=== PATIENT | female | born 1970 | race African-American/Black ===

== ENCOUNTER 2021-12-17 06:27 | Observation (INO) ==
[2021-12-17] MEDS ORDERED: ALBUTEROL/IPRATROPIUM 3 ML NEB RESP TX STA (07:32)
[2021-12-17] MEDS ORDERED: methylPREDNISolone SOD SUC 125 MG/2 ML VIAL IV STA (07:32)
[2021-12-17 07:38] LABS: Basophils # 0.1 10*3/uL (0.0-0.2); Basophils % 1.4 % (0.0-0.8); Eosinophils % 19.7 % (0.00-10.9); Hematocrit 48.4 VOL% (35.7-47.0); Hemoglobin 15.8 GM/DL (12.0-16.0); Immature Granulocytes % 0.3 %; Immature Granulocytes Absolute 0.03 #; Lymphocytes # 2.2 10*3/uL (1.4-4.0); Lymphocytes % 21.1 % (21.3-54.2); Mean Corpuscular HGB Conc 32.6 GM/DL (32-36); Mean Corpuscular Volume 82.6 FL (87-102); Mean Platelet Volume 11.1 FL (9.6-12.0); Monocytes % 9.5 % (1.7-12.7); Platelet Count 247 T/CUMM (130-400); Red Blood Count 5.86 MC/CUMM (3.8-5.5); Red Cell Distribution Width 13.9 % (9.3-17.3); White Blood Count 10.3 T/CUMM (4-12)
[2021-12-17 07:45] LABS: PT Patient Result 11.6 SECS (10.5-12.0)
[2021-12-17 07:55] LABS: Albumin 3.9 G/DL (3.4-5.0); Bilirubin,Total 0.7 MG/DL (0.20-1.00); Calcium 9.1 MG/DL (8.5-10.1); Eosinophils 23 % (0-10); Lymphocytes 28 % (20-55); Platelet Estimate Adequate; Potassium 5.3 MMOL/L (3.5-5.1); Segmented Neutrophils 45 % (50-85); Total Cells Counted 100; Total Protein 8.6 G/DL (6.4-8.2)
[2021-12-17] MEDS ORDERED: LEVOFLOXACIN INJ 500 MG/100 ML PREMIX IV ONE (08:13)
[2021-12-17] MEDS ORDERED: GLUCAGON 1 MG VIAL IM PRN (09:22)
[2021-12-17] MEDS ORDERED: ACETAMINOPHEN 325 MG TABLET PO PRN (09:23)
[2021-12-17] MEDS ORDERED: hydrALAZINE 20 MG/1 ML VIAL IV PRN (09:23)
[2021-12-17] MEDS ORDERED: ONDANSETRON 4 MG/2 ML VIAL IV PRN (09:23)
[2021-12-17] MEDS: SODIUM CHLORIDE 0.9% 1,000 ML IV SCH (10:20)
[2021-12-17] MEDS: amLODIPine 10 MG TABLET PO SCH (10:20)
[2021-12-17] MEDS: ENOXAPARIN 40 MG/0.4 ML SYRINGE SUBCUT SCH (10:25)
[2021-12-17] MEDS ORDERED: DEXTROSE 10% 250 ML BAG IV PRN (11:05)
[2021-12-17] MEDS: ALBUTEROL/IPRATROPIUM 3 ML NEB RESP TX SCH ×2 (13:48→19:10)
[2021-12-17] MEDS: methylPREDNISolone SOD SUC 40 MG/1 ML VIAL IV SCH (18:08)
[2021-12-17] MEDS: PREGABALIN 75 MG CAPSULE PO SCH (20:58)
[2021-12-17] MEDS: ZALEPLON 5 MG CAPSULE PO PRN (21:02)
[2021-12-17] MEDS: guaiFENesin/DM ER 600-30 MG TABLET PO PRN (23:19)
[2021-12-18] MEDS: ALBUTEROL/IPRATROPIUM 3 ML NEB RESP TX SCH ×4 (00:50→19:09)
[2021-12-18] MEDS: methylPREDNISolone SOD SUC 40 MG/1 ML VIAL IV SCH ×3 (02:58→21:59)
[2021-12-18] MEDS: SODIUM CHLORIDE 0.9% 1,000 ML IV SCH ×2 (03:07→05:00)
[2021-12-18 05:26] LABS: Basophils % 0.3 % (0.0-0.8); Eosinophils % 0.1 % (0.00-10.9); Hematocrit 42.9 VOL% (35.7-47.0); Hemoglobin 13.8 GM/DL (12.0-16.0); Immature Granulocytes % 0.6 %; Immature Granulocytes Absolute 0.06 #; Lymphocytes % 9.6 % (21.3-54.2); Mean Corpuscular HGB Conc 32.2 GM/DL (32-36); Mean Corpuscular Volume 84.1 FL (87-102); Mean Platelet Volume 11.6 FL (9.6-12.0); Monocytes % 6.6 % (1.7-12.7); Neutrophils % 82.8 % (38.7-73.9); Platelet Count 248 T/CUMM (130-400); Red Cell Distribution Width 13.9 % (9.3-17.3); White Blood Count 9.9 T/CUMM (4-12)
[2021-12-18 05:55] LABS: Calcium 9.2 MG/DL (8.5-10.1); Osmolality,Calculated 268.2 MOS/KG (273-304); Potassium 4.3 MMOL/L (3.5-5.1)
[2021-12-18] MEDS: tiZANidine 4 MG TABLET PO PRN ×3 (06:56→22:05)
[2021-12-18] MEDS: PREGABALIN 75 MG CAPSULE PO SCH ×2 (09:14→22:02)
[2021-12-18] MEDS: amLODIPine 10 MG TABLET PO SCH (09:14)
[2021-12-18] MEDS: LEVOFLOXACIN 750 MG TABLET PO SCH (09:14)
[2021-12-18] MEDS: ENOXAPARIN 40 MG/0.4 ML SYRINGE SUBCUT SCH (11:11)
[2021-12-18] MEDS: guaiFENesin/DM ER 600-30 MG TABLET PO PRN (22:02)
[2021-12-18] MEDS: ZALEPLON 5 MG CAPSULE PO PRN (22:02)
[2021-12-19] MEDS: ALBUTEROL/IPRATROPIUM 3 ML NEB RESP TX SCH ×2 (01:19→07:20)
[2021-12-19] MEDS: tiZANidine 4 MG TABLET PO PRN ×2 (04:19→09:31)
[2021-12-19 05:21] LABS: Basophils % 0.2 % (0.0-0.8); Eosinophils % 0.1 % (0.00-10.9); Hematocrit 40.6 VOL% (35.7-47.0); Hemoglobin 13.2 GM/DL (12.0-16.0); Immature Granulocytes % 0.4 %; Immature Granulocytes Absolute 0.04 #; Lymphocytes # 0.9 10*3/uL (1.4-4.0); Mean Corpuscular HGB Conc 32.5 GM/DL (32-36); Mean Corpuscular Volume 82.2 FL (87-102); Mean Platelet Volume 11.2 FL (9.6-12.0); Monocytes % 5.3 % (1.7-12.7); Platelet Count 224 T/CUMM (130-400); Red Blood Count 4.94 MC/CUMM (3.8-5.5); Red Cell Distribution Width 14.1 % (9.3-17.3); White Blood Count 10.7 T/CUMM (4-12)
[2021-12-19 05:50] LABS: Osmolality,Calculated 272.1 MOS/KG (273-304); Potassium 3.6 MMOL/L (3.5-5.1)
[2021-12-19 08:00] VITALS: BP 107/54
[2021-12-19] MEDS ORDERED: amLODIPine 5 MG TABLET PO SCH (09:00)
[2021-12-19] MEDS: LEVOFLOXACIN 750 MG TABLET PO SCH (09:28)
[2021-12-19] MEDS: PREGABALIN 75 MG CAPSULE PO SCH (09:28)
[2021-12-19] MEDS: methylPREDNISolone SOD SUC 40 MG/1 ML VIAL IV SCH (09:29)
== END 2021-12-19 11:17 | disposition home or self-care (01) ==
LOC: EDBD → EDUNIT# → N.EDINP 06:27 → N.ED 06:27 → N.5E 15:53
PROVIDERS: ADMIT Internal Medicine; ATTEND Internal Medicine

== ENCOUNTER 2022-03-21 03:18 | Inpatient (IN) ==
[2022-03-21 04:02] LABS: Basophils # 0.1 10*3/uL (0.0-0.2); Basophils % 1.5 % (0.0-0.8); Eosinophils # 1.7 10*3/uL (0.0-0.87); Eosinophils % 20.8 % (0.00-10.9); Hematocrit 44.4 VOL% (35.7-47.0); Hemoglobin 14.6 GM/DL (12.0-16.0); Immature Granulocytes % 0.1 %; Immature Granulocytes Absolute 0.01 #; Lymphocytes # 0.9 10*3/uL (1.4-4.0); Lymphocytes % 10.8 % (21.3-54.2); Mean Corpuscular HGB Conc 32.9 GM/DL (32-36); Mean Corpuscular Volume 83.6 FL (87-102); Mean Platelet Volume 10.6 FL (9.6-12.0); Monocytes # 0.8 10*3/uL (0.11-0.8); Monocytes % 9.9 % (1.7-12.7); Neutrophils % 56.9 % (38.7-73.9); Platelet Count 207 T/CUMM (130-400); Red Blood Count 5.31 MC/CUMM (3.8-5.5); Red Cell Distribution Width 13.9 % (9.3-17.3); White Blood Count 8.3 T/CUMM (4-12)
[2022-03-21] MEDS ORDERED: methylPREDNISolone SOD SUC 125 MG/2 ML VIAL IV STA (04:05)
[2022-03-21] MEDS ORDERED: ALBUTEROL/IPRATROPIUM 3 ML NEB RESP TX STA (04:05)
[2022-03-21 04:12] LABS: ABG Base Excess 4.4 MMOL/L (-2.5-2.5); ABG HCO3 28.4 MMOL/L (20-26); ABG Oxygen Saturation 98.4 % (95-100); ABG PH 7.269 (7.35-7.45); ABG TCO2 30.6 MMOL/L (23-27)
[2022-03-21 04:13] LABS: ABG PCO2 76.9 MM HG (35-48)
[2022-03-21] MEDS ORDERED: LEVOFLOXACIN INJ 750 MG/150 ML PREMIX IV STA (04:21)
[2022-03-21 04:23] LABS: Albumin 3.5 G/DL (3.4-5.0); Bilirubin,Total 0.4 MG/DL (0.20-1.00); Calcium 8.9 MG/DL (8.5-10.1); Potassium 3.2 MMOL/L (3.5-5.1); Total Protein 8.1 G/DL (6.4-8.2)
[2022-03-21] MEDS ORDERED: ACETAMINOPHEN 500 MG TABLET PO STA (04:38)
[2022-03-21 04:55] LABS: Eosinophils 30 % (0-10); Lymphocytes 13 % (20-55); Total Cells Counted 100
[2022-03-21 04:56] LABS: Microcytosis Slight; Ovalocytes Slight; Platelet Estimate Normal
[2022-03-21] MEDS ORDERED: DEXTROSE 10% 250 ML BAG IV PRN (05:00)
[2022-03-21] MEDS ORDERED: MORPHINE 2 MG/1 ML SYRINGE IV PRN (05:00)
[2022-03-21] MEDS ORDERED: ACETAMINOPHEN 325 MG TABLET PO PRN (05:00)
[2022-03-21] MEDS ORDERED: hydrALAZINE 20 MG/1 ML VIAL IV PRN (05:00)
[2022-03-21] MEDS ORDERED: GLUCAGON 1 MG VIAL IM PRN (05:00)
[2022-03-21] MEDS ORDERED: ONDANSETRON 4 MG/2 ML VIAL IV PRN (05:00)
[2022-03-21] MEDS ORDERED: POTASSIUM CHLORIDE 20 MEQ TABLET PO ONE (05:06)
[2022-03-21] MEDS: ALBUTEROL/IPRATROPIUM 3 ML NEB RESP TX SCH ×3 (07:15→20:07)
[2022-03-21] MEDS: PANTOPRAZOLE 40 MG TABLET PO SCH (09:39)
[2022-03-21 12:19] LABS: Arterial Base Excess iSTAT 6 MMOL/L (-2.5-2.5); Arterial Bicarbonate iSTAT 33.5 MMOL/L (20-26); Arterial O2 Saturation iSTAT 96 % (95-100); Arterial PCO2 iSTAT 57 MM HG (35-48); Arterial PO2 iSTAT 84 MM HG (80-95); Arterial Total CO2 iSTAT 35 MMO/L (23-27); Arterial pH iSTAT 7.374 (7.35-7.45)
[2022-03-21] MEDS: methylPREDNISolone SOD SUC 125 MG/2 ML VIAL IV SCH ×2 (12:40→21:50)
[2022-03-21] MEDS: ENOXAPARIN 40 MG/0.4 ML SYRINGE SUBCUT SCH (21:53)
[2022-03-22] MEDS: ALBUTEROL/IPRATROPIUM 3 ML NEB RESP TX SCH ×4 (00:12→19:30)
[2022-03-22] MEDS: methylPREDNISolone SOD SUC 125 MG/2 ML VIAL IV SCH ×3 (05:00→21:15)
[2022-03-22] MEDS: LEVOFLOXACIN INJ 750 MG/150 ML PREMIX IV SCH (05:11)
[2022-03-22 06:52] LABS: Basophils % 0.1 % (0.0-0.8); Eosinophils % 0.1 % (0.00-10.9); Hematocrit 40.8 VOL% (35.7-47.0); Hemoglobin 13.5 GM/DL (12.0-16.0); Immature Granulocytes % 0.3 %; Immature Granulocytes Absolute 0.02 #; Lymphocytes # 0.9 10*3/uL (1.4-4.0); Lymphocytes % 12.6 % (21.3-54.2); Mean Corpuscular HGB Conc 33.1 GM/DL (32-36); Mean Corpuscular Volume 83.3 FL (87-102); Mean Platelet Volume 11.9 FL (9.6-12.0); Monocytes # 0.3 10*3/uL (0.11-0.8); Monocytes % 4.6 % (1.7-12.7); Neutrophils % 82.3 % (38.7-73.9); Platelet Count 185 T/CUMM (130-400); Red Cell Distribution Width 14.2 % (9.3-17.3); White Blood Count 6.9 T/CUMM (4-12)
[2022-03-22 07:20] LABS: Calcium 9.5 MG/DL (8.5-10.1); Osmolality,Calculated 266.5 MOS/KG (273-304); Potassium 3.7 MMOL/L (3.5-5.1); Thyroid Stimulating Hormone 0.075 uIU/ml (0.358-3.74)
[2022-03-22] MEDS: PANTOPRAZOLE 40 MG TABLET PO SCH (09:10)
[2022-03-22] MEDS ORDERED: PROMETHAZINE CODEINE PO PRN (11:55)
[2022-03-22] MEDS: GABAPENTIN 400 MG CAPSULE PO SCH ×3 (13:10→22:48)
[2022-03-22] MEDS: tiZANidine 4 MG TABLET PO SCH ×3 (13:10→22:48)
[2022-03-22] MEDS: oxyCODONE/ACETAMINOPHEN 5-325 MG TABLET PO PRN (17:01)
[2022-03-22] MEDS: PREGABALIN 75 MG CAPSULE PO PRN (18:01)
[2022-03-22] MEDS: ENOXAPARIN 40 MG/0.4 ML SYRINGE SUBCUT SCH (21:30)
[2022-03-23] MEDS: ALBUTEROL/IPRATROPIUM 3 ML NEB RESP TX SCH ×4 (00:07→20:05)
[2022-03-23] MEDS: oxyCODONE/ACETAMINOPHEN 5-325 MG TABLET PO PRN ×4 (00:45→21:09)
[2022-03-23 05:01] LABS: Basophils % 0.1 % (0.0-0.8); Hemoglobin 13.8 GM/DL (12.0-16.0); Immature Granulocytes % 0.5 %; Immature Granulocytes Absolute 0.06 #; Lymphocytes % 8.1 % (21.3-54.2); Mean Corpuscular HGB Conc 32.9 GM/DL (32-36); Mean Corpuscular Volume 82.8 FL (87-102); Mean Platelet Volume 11.1 FL (9.6-12.0); Monocytes # 0.6 10*3/uL (0.11-0.8); Monocytes % 5.2 % (1.7-12.7); Neutrophils % 86.1 % (38.7-73.9); Platelet Count 247 T/CUMM (130-400); Red Blood Count 5.07 MC/CUMM (3.8-5.5); Red Cell Distribution Width 14.6 % (9.3-17.3); White Blood Count 11.8 T/CUMM (4-12)
[2022-03-23] MEDS: methylPREDNISolone SOD SUC 125 MG/2 ML VIAL IV SCH ×3 (05:11→21:08)
[2022-03-23] MEDS: LEVOFLOXACIN INJ 750 MG/150 ML PREMIX IV SCH (05:15)
[2022-03-23 05:20] LABS: Calcium 9.4 MG/DL (8.5-10.1); Osmolality,Calculated 274.8 MOS/KG (273-304); Potassium 3.6 MMOL/L (3.5-5.1)
[2022-03-23] MEDS: GABAPENTIN 400 MG CAPSULE PO SCH ×4 (09:43→21:05)
[2022-03-23] MEDS: hydroCHLOROthiazide 25 MG TABLET PO SCH (09:43)
[2022-03-23] MEDS: tiZANidine 4 MG TABLET PO SCH ×4 (09:43→21:08)
[2022-03-23] MEDS: PANTOPRAZOLE 40 MG TABLET PO SCH (09:43)
[2022-03-23] MEDS: HYDROmorphone 1 MG/1 ML SYRINGE IV PRN (18:38)
[2022-03-23] MEDS: ENOXAPARIN 40 MG/0.4 ML SYRINGE SUBCUT SCH (21:07)
[2022-03-23] MEDS: PREGABALIN 75 MG CAPSULE PO PRN (21:08)
[2022-03-24] MEDS: ALBUTEROL/IPRATROPIUM 3 ML NEB RESP TX SCH ×4 (00:12→19:08)
[2022-03-24] MEDS: HYDROmorphone 1 MG/1 ML SYRINGE IV PRN ×3 (01:32→20:34)
[2022-03-24] MEDS: oxyCODONE/ACETAMINOPHEN 5-325 MG TABLET PO PRN ×3 (03:34→18:27)
[2022-03-24] MEDS: methylPREDNISolone SOD SUC 125 MG/2 ML VIAL IV SCH ×2 (03:35→12:26)
[2022-03-24] MEDS: LEVOFLOXACIN INJ 750 MG/150 ML PREMIX IV SCH (04:00)
[2022-03-24 04:58] LABS: Basophils % 0.1 % (0.0-0.8); Hematocrit 41.4 VOL% (35.7-47.0); Hemoglobin 13.3 GM/DL (12.0-16.0); Immature Granulocytes % 0.6 %; Immature Granulocytes Absolute 0.07 #; Lymphocytes # 0.9 10*3/uL (1.4-4.0); Lymphocytes % 7.2 % (21.3-54.2); Mean Corpuscular HGB Conc 32.1 GM/DL (32-36); Mean Corpuscular Volume 84.7 FL (87-102); Mean Platelet Volume 11.1 FL (9.6-12.0); Monocytes # 0.5 10*3/uL (0.11-0.8); Monocytes % 3.6 % (1.7-12.7); Neutrophils % 88.5 % (38.7-73.9); Platelet Count 239 T/CUMM (130-400); Red Blood Count 4.89 MC/CUMM (3.8-5.5); Red Cell Distribution Width 14.6 % (9.3-17.3); White Blood Count 12.6 T/CUMM (4-12)
[2022-03-24 05:20] LABS: Risk Ratio 2.64; VLDL Cholesterol 13.6 MG/DL
[2022-03-24 05:22] LABS: Calcium 9.3 MG/DL (8.5-10.1); Osmolality,Calculated 274.1 MOS/KG (273-304); Potassium 3.8 MMOL/L (3.5-5.1)
[2022-03-24] MEDS: PANTOPRAZOLE 40 MG TABLET PO SCH (08:05)
[2022-03-24] MEDS: GABAPENTIN 400 MG CAPSULE PO SCH ×4 (08:06→20:31)
[2022-03-24] MEDS: tiZANidine 4 MG TABLET PO SCH ×4 (08:06→20:33)
[2022-03-24] MEDS: hydroCHLOROthiazide 25 MG TABLET PO SCH (08:35)
[2022-03-24] MEDS: PREGABALIN 75 MG CAPSULE PO PRN ×2 (12:26→20:32)
[2022-03-24] MEDS ORDERED: HYDROmorphone 1 MG/1 ML SYRINGE IV ONE (14:00)
[2022-03-24] MEDS: ENOXAPARIN 40 MG/0.4 ML SYRINGE SUBCUT SCH (20:32)
[2022-03-25] MEDS: oxyCODONE/ACETAMINOPHEN 5-325 MG TABLET PO PRN ×3 (00:13→14:28)
[2022-03-25] MEDS: methylPREDNISolone SOD SUC 40 MG/1 ML VIAL IV SCH ×2 (00:13→14:34)
[2022-03-25] MEDS: ALBUTEROL/IPRATROPIUM 3 ML NEB RESP TX SCH ×4 (01:35→19:28)
[2022-03-25] MEDS: HYDROmorphone 1 MG/1 ML SYRINGE IV PRN ×4 (02:23→21:18)
[2022-03-25] MEDS: PANTOPRAZOLE 40 MG TABLET PO SCH (08:32)
[2022-03-25] MEDS: PREGABALIN 75 MG CAPSULE PO PRN ×2 (08:32→21:24)
[2022-03-25] MEDS: hydroCHLOROthiazide 25 MG TABLET PO SCH (08:32)
[2022-03-25] MEDS: tiZANidine 4 MG TABLET PO SCH ×4 (08:32→21:23)
[2022-03-25] MEDS: LEVOFLOXACIN INJ 750 MG/150 ML PREMIX IV SCH (08:32)
[2022-03-25] MEDS: GABAPENTIN 400 MG CAPSULE PO SCH ×4 (08:33→22:50)
[2022-03-25] MEDS: ENOXAPARIN 40 MG/0.4 ML SYRINGE SUBCUT SCH (21:18)
[2022-03-26] MEDS: ALBUTEROL/IPRATROPIUM 3 ML NEB RESP TX SCH ×2 (00:12→07:15)
[2022-03-26] MEDS: HYDROmorphone 1 MG/1 ML SYRINGE IV PRN ×2 (03:09→09:40)
[2022-03-26 05:06] LABS: Basophils % 0.2 % (0.0-0.8); Eosinophils # 0.3 10*3/uL (0.0-0.87); Eosinophils % 2.9 % (0.00-10.9); Hematocrit 43.6 VOL% (35.7-47.0); Immature Granulocytes % 0.3 %; Immature Granulocytes Absolute 0.03 #; Lymphocytes % 40.6 % (21.3-54.2); Mean Corpuscular HGB Conc 32.1 GM/DL (32-36); Mean Corpuscular Volume 84.3 FL (87-102); Mean Platelet Volume 11.3 FL (9.6-12.0); Monocytes # 0.8 10*3/uL (0.11-0.8); Monocytes % 8.1 % (1.7-12.7); Neutrophils % 47.9 % (38.7-73.9); Platelet Count 266 T/CUMM (130-400); Red Blood Count 5.17 MC/CUMM (3.8-5.5); Red Cell Distribution Width 14.6 % (9.3-17.3); White Blood Count 9.8 T/CUMM (4-12)
[2022-03-26 05:25] LABS: Calcium 8.8 MG/DL (8.5-10.1); Osmolality,Calculated 273.8 MOS/KG (273-304); Potassium 2.7 MMOL/L (3.5-5.1)
[2022-03-26 07:26] VITALS: BP 144/61
[2022-03-26] MEDS ORDERED: predniSONE 20 MG TABLET PO SCH (09:00)
[2022-03-26] MEDS: PANTOPRAZOLE 40 MG TABLET PO SCH (09:39)
[2022-03-26] MEDS: tiZANidine 4 MG TABLET PO SCH ×2 (09:39→12:11)
[2022-03-26] MEDS: hydroCHLOROthiazide 25 MG TABLET PO SCH (09:39)
[2022-03-26] MEDS: PREGABALIN 75 MG CAPSULE PO PRN (09:40)
[2022-03-26] MEDS: GABAPENTIN 400 MG CAPSULE PO SCH ×2 (09:45→12:11)
[2022-03-26] MEDS: LEVOFLOXACIN INJ 750 MG/150 ML PREMIX IV SCH (09:49)
[2022-03-26] MEDS ORDERED: LEVOFLOXACIN 750 MG TABLET PO SCH (10:00)
[2022-03-26] MEDS ORDERED: POTASSIUM CHLORIDE 20 MEQ TABLET PO ONE ×2 (12:05→13:06)
[2022-03-26] MEDS: oxyCODONE/ACETAMINOPHEN 5-325 MG TABLET PO PRN (13:41)
== END 2022-03-26 14:10 | disposition home or self-care (01) | DRG 139 ==
LOC: EDUNIT# → EDBD → N.ED 03:18 → N.EDINP 05:00 → N.5E 16:55
PROVIDERS: ADMIT Internal Medicine; ATTEND Internal Medicine